=== PATIENT | male | born 1935 | race Caucasian/White ===

== ENCOUNTER 2017-06-08 12:56 | Emergency (ER) | payer MEDICARE, OTHER | END 2017-06-08 14:38 | disposition home or self-care (01) | LOC: EDH 12:56 | DX: S82.832A Other fracture of upper and lower end of left fibula, initial encounter for closed fracture (principal); Z95.0 Presence of cardiac pacemaker; Z98.890 Other specified postprocedural states; X58.XXXA Exposure to other specified factors, initial encounter; Y93.89 Activity, other specified; Y92.098 Other place in other non-institutional residence as the place of occurrence of the external cause; Y99.8 Other external cause status | CPT/HCPCS: 29515; 73610; 73630 ==